=== PATIENT | male | born 1955 | race African-American/Black ===

== ENCOUNTER 2016-12-05 10:17 | Emergency (ER) | payer OTHER, BC ==
[~2016-12-05] VITALS: Ht 172.7 cm; Wt 97.5 kg
--- NOTE | ~2016-12-05 | EKG ---
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 : 1955 Requested By: Atilio Lewis Order Number: [id number] MD: Nate Ashby Measurements Intervals [place] Rate: 60 P: 30 VT: 194 QRS: 32 QRSD: 90 T: 109 QT: 486 QTc: 486 Interpretive Statements Sinus rhythm Probable LVH with secondary repol abnrm Inferior infarct, old Anterior Q waves, possibly due to LVH Compared to ECG 04/08/2016 14:32:54 Myocardial infarct finding now present Q waves now present Short VT interval no longer present Electronically Signed On 12-05-2016 14:13:00 CDT by Nate Ashby [email or web address] <ELECTRONICALLY SIGNED> By: Nate Ashby MD 12/05/16 1413 1042 1042 Nate Ashby MD /EPI
[~2016-12-05 10:17] MED LIST: AMLODIPINE BESYL5 MG PO; BYSTOLIC 5 MG5 M1 PO; BYSTOLIC10 MG PO; COUMADIN 5 MG TA5 M1 PO; DEMADEX20 MG PO; EFFIENT10 MG PO; ENOXAPARIN100 MG/11 SUBQ; FLOMAX0.4 MG PO; FOLIC ACID1 MG PO; LANTUS100 UNIT/M SQ; LASIX 80 MG TAB80 MG PO; LIPITOR40 MG PO; METOLAZONE 5 MG5 MG PO; NORCO 5-325 TA1 EACH PO; NORVASC5 MG PO; NOVOLOG100 UNIT/1 SQ; PLAVIX 75 MG TA75 M1 PO; PROSCAR 5MG TABL5 MG PO; RENVELA800 MG PO; TORSEMIDE20 MG PO; URECHOLINE 10 M10 M1 PO
[2016-12-05] MEDS ORDERED: BASAGLAR K100 UNIT/1 SQ (10:35)
[2016-12-05] MEDS ORDERED: FLEXERIL PO (12:26)
[2016-12-05] MEDS ORDERED: HYDROCODONE-AP1 EAC6 PO (12:26)
[2016-12-05] MEDS ORDERED: SENOKOT-S1 TA1 PO (12:45)
== END 2016-12-05 12:45 | disposition home or self-care (01) ==
LOC: ER 10:17
DX: S46.811A Strain of other muscles, fascia and tendons at shoulder and upper arm level, right arm, initial encounter (principal); I25.10 Atherosclerotic heart disease of native coronary artery without angina pectoris; E21.3 Hyperparathyroidism, unspecified; G47.33 Obstructive sleep apnea (adult) (pediatric); E78.5 Hyperlipidemia, unspecified; D57.3 Sickle-cell trait; I13.0 Hypertensive heart and chronic kidney disease with heart failure and stage 1 through stage 4 chronic kidney disease, or unspecified chronic kidney disease; E11.22 Type 2 diabetes mellitus with diabetic chronic kidney disease; N18.4 Chronic kidney disease, stage 4 (severe); I50.9 Heart failure, unspecified; E11.40 Type 2 diabetes mellitus with diabetic neuropathy, unspecified; Z79.4 Long term (current) use of insulin; Z95.5 Presence of coronary angioplasty implant and graft; Z99.2 Dependence on renal dialysis; Z88.8 Allergy status to other drugs, medicaments and biological substances; Z87.891 Personal history of nicotine dependence; X58.XXXA Exposure to other specified factors, initial encounter; Y93.89 Activity, other specified; Y92.89 Other specified places as the place of occurrence of the external cause; Y99.8 Other external cause status

== ENCOUNTER 2016-12-09 17:47 | Emergency (ER) | payer OTHER, BC ==
[~2016-12-09] VITALS: Ht 175.3 cm; Wt 97.5 kg
[~2016-12-09 17:47] MED LIST changes: +BASAGLAR K100 UNIT/1 SQ; +FLEXERIL PO; +HYDROCODONE-AP1 EAC6 PO; +SENOKOT-S1 TA1 PO
[2016-12-09] MEDS ORDERED: MOBIC15 MG PO (20:02)
== END 2016-12-09 20:31 | disposition home or self-care (01) ==
LOC: ER 17:47
DX: S46.911A Strain of unspecified muscle, fascia and tendon at shoulder and upper arm level, right arm, initial encounter (principal); I13.0 Hypertensive heart and chronic kidney disease with heart failure and stage 1 through stage 4 chronic kidney disease, or unspecified chronic kidney disease; E11.22 Type 2 diabetes mellitus with diabetic chronic kidney disease; N18.4 Chronic kidney disease, stage 4 (severe); I50.9 Heart failure, unspecified; E11.42 Type 2 diabetes mellitus with diabetic polyneuropathy; I25.10 Atherosclerotic heart disease of native coronary artery without angina pectoris; M19.90 Unspecified osteoarthritis, unspecified site; E78.5 Hyperlipidemia, unspecified; Z95.5 Presence of coronary angioplasty implant and graft; Z79.4 Long term (current) use of insulin; Z98.890 Other specified postprocedural states; Z99.2 Dependence on renal dialysis; Z88.8 Allergy status to other drugs, medicaments and biological substances; Z87.891 Personal history of nicotine dependence; V89.2XXA Person injured in unspecified motor-vehicle accident, traffic, initial encounter; Y93.89 Activity, other specified; Y92.89 Other specified places as the place of occurrence of the external cause; Y99.8 Other external cause status

== ENCOUNTER 2017-01-23 10:01 | Emergency (ER) | payer OTHER, BC ==
[~2017-01-23] VITALS: Ht 175.3 cm; Wt 102.1 kg
--- NOTE | ~2017-01-23 | HC ---
[facility] [place] [address] CONSULTATION Name: DARCIEGARCIA Room #: DEP Temo#: [id number] Admission: 01/23/17 Attend Phys: Discharge: 01/23/17 Date of : 53 Report #: [id number] THIS REPORT FOR: //name// CC: Emiliano Mack DATE OF SERVICE: 01/23/2017 ATTENDING PHYSICIAN: Emiliano Torres M.D., F.A.C.C. REASON FOR CONSULTATION: End-stage renal disease. HISTORY OF PRESENT ILLNESS: The patient is well known to our service. This is a 61-year-old gentleman with longstanding diabetes mellitus and diabetic nephropathy who has been on dialysis for the last 9 months. Last year, he had recurrence of angina related to an LAD lesion, which had been on the side of 2 previous LAD cardiac stents. It was decided that he undergo a HODGSON to LAD surgical procedure, which was performed by Dr. Thomas last March. Unfortunate, he was close to end-stage renal disease, had further deterioration of his renal function postoperatively and has more or less been on dialysis ever since. Today, in dialysis, he developed left-sided sharp chest pain, not accompanied by shortness of breath. This worsened, and he came off dialysis and was sent to the Emergency Room. His troponin was 0.21. There were no EKG changes. PAST MEDICAL HISTORY: Longstanding diabetes. He has retinopathy. He has had laser surgery times 2. He has had peripheral neuropathy. He has had hypertension. FAMILY HISTORY: Positive for a brother with diabetes who also had heart bypass surgery. No other renal disease in the family. SOCIAL HISTORY: Former smoker, but he quit. He is disabled. REVIEW OF SYSTEMS: GENERAL: Up to this point, he has been feeling well. He has been active. He has been working to some degree around the house anyway. EYES: Vision is okay. ENT: Hearing okay. Swallowing okay. No mouth ulcers. ENDOCRINE: There is no thyroid disease. RESPIRATORY: There has not been no shortness of breath or pleuritic pain. CARDIAC: He had this sharp chest pain on the left side today and has not been having any angina. GASTROINTESTINAL: No nausea, diarrhea or bloody stools. No vomiting. [facility] [address] [place] [address] CONSULTATION Name: GARCIA SPRAGUE Room #: DEP RO Plascencia#: [id number] Admission: 01/23/17 Attend Phys: Discharge: 01/23/17 Date of : 53 Report #: [id number] GENITOURINARY: He has got a good urinary stream without dysuria or hematuria. NEUROLOGIC: He has had some peripheral neuropathy with numbness and tingling in his feet. There has been no seizure or stroke. No syncopal episodes. PSYCHIATRIC: No depression or anxiety. SKIN: No skin rashes, lesions or ulcers. PHYSICAL EXAMINATION: VITAL SIGNS: Healthy, well-appearing gentleman. SKIN: Unremarkable. SKELETAL: He is a little bit overweight. HEENT: Extraocular movements are full. Vision is intact. No scleral icterus. Hearing intact. Mucous membranes are moist. Tongue and buccal mucosa benign. NECK: Supple, no carotid bruits, no JVD, no lymphadenopathy. CHEST: Completely clear to auscultation. HEART: Regular rate and rhythm without murmurs, gallops or rubs. ABDOMEN: Soft and nontender. No bruits, masses or organomegaly. EXTREMITIES: He has got a fistula on his left arm. Good thrill and bruit. LABORATORY DATA: Hemoglobin is 11.8. Platelets are 150. White count is 6.6. Sodium 136, potassium 4, chloride 97, bicarbonate 31, BUN 26 and creatinine 3.8. HOME MEDICATIONS: As listed in the chart include amlodipine 5 mg daily, ampicillin 500 mg b.i.d., aspirin 81 mg daily, Urecholine 10 mg b.i.d., calcium acetate, finasteride 5 mg daily, Asacol 400 mg daily, insulin, warfarin, torsemide and Flomax. ASSESSMENT AND PLAN: 1. Chest pain. He is having chest pain. It is unusual and somewhat atypical. We will leave the decision to admission up to Dr. Torres, the kier operator. 2. End-stage renal disease. He had dialyzed today, and he appears well dialyzed. 3. Diabetes mellitus with triopathy. <ELECTRONICALLY SIGNED> By: Emiliano Jenkins MD 01/25/17 1122 1152 181 Emiliano Jenkins MD /nt
--- NOTE | ~2017-01-23 | EKG ---
[facility] [employer] [place] [address] ELECTROCARDIOGRAM REPORT Name: DARCIEGARCIA Room #: [facility]P [facility] [id number] Admission: 01/23/17 Attend Phys: Discharge: 01/23/17 Date of : 53 Report #: [id number] THIS REPORT FOR: //name// [facility] ED Test Date: 2017-01-23 Test Time: 10:10:05 Pat Name: GARCIA SPRAGUE Department: Room: Gender: M [place]eller: [id number] : 1955 Requested By: Renato Stanton Order Number: [id number] MD: Casa Raya Measurements Intervals [place] Rate: 60 P: 20 ID: 187 QRS: 40 QRSD: 94 T: 145 QT: 450 QTc: 450 Interpretive Statements Sinus rhythm Poor R wave progression Nonspecific ST and T wave abnormality Compared to ECG 12/05/2016 10:42:09 No significant change was found Electronically Signed On 01-24-2017 13:03:38 CDT by Casa Raya [email or web address] <ELECTRONICALLY SIGNED> By: Casa Raya MD, [facility] 01/24/17 1303 1010 1010 Casa Raya MD, [facility] /EPI
[~2017-01-23 10:01] MED LIST changes: +MOBIC15 MG PO
[2017-01-23 10:23] LABS: ABSOLUTE NEUTROPHILS 4.1 thou/uL (1.4-8.2); BASOPHILS 1.4 % (0.0-2.0); EOSINOPHILS 4.7 % (0.0-3.0); HEMATOCRIT 34.5 % (42.0-52.0); HEMOGLOBIN 11.8 gm/dL (14.0-18.0); LYMPHOCYTES 19.5 % (24.0-44.0); MANUAL DIFF NO; MCH 30.1 pg (26.0-34.0); MCHC 34.2 g/dL (28.0-37.0); MONOCYTES 11.5 % (1.0-8.0); PLATELET COUNT 150 thou/uL (150-400); POLYS 62.9 % (36.0-66.0); RBC 3.92 mil/uL (4.50-6.00); RDW 15.5 % (10.5-14.5); WBC 6.6 thou/uL (4.0-11.0)
[2017-01-23 10:32] LABS: CALCIUM 8.8 mg/dL (8.5-10.1); CREATININE 3.8 mg/dL (0.7-1.3)
[2017-01-23 10:40] LABS: ALBUMIN 3.4 g/dL (3.4-5.0); DIRECT BILIRUBIN 0.1 mg/dL (<0.1-0.3); TOTAL BILIRUBIN 0.6 mg/dL (<0.1-1.0); TOTAL PROTEIN 7.2 g/dL (6.4-8.2); TROPONIN-I 0.21 ng/mL (<0.04-0.07)
[2017-01-23 10:50] LABS: APTT 25.8 Seconds (24.5-32.8); PROTIME 10.4 Seconds (9.3-11.4)
[2017-01-23] MEDS ORDERED: ASPIR 8181 MG PER TUBE (11:26)
[2017-01-23] MEDS ORDERED: AMPICILLIN TRI500 MG PO (11:26)
[2017-01-23] MEDS ORDERED: CALCIUM ACETAT667 M2 PO (11:28)
[2017-01-23] MEDS ORDERED: BENADRYL25 MG PO (11:28)
[2017-01-23] MEDS ORDERED: ADVIL200 M1 PO (11:30)
[2017-01-23] MEDS ORDERED: NITROGLYCERIN0.4 MG SUBLING (11:31)
[2017-01-23] MEDS ORDERED: TORSEMIDE100 MG PO (11:32)
== END 2017-01-23 13:24 | disposition home or self-care (01) ==
LOC: ER 10:01
PROVIDERS: Physician Assistant
DX: R07.89 Other chest pain (principal); I13.0 Hypertensive heart and chronic kidney disease with heart failure and stage 1 through stage 4 chronic kidney disease, or unspecified chronic kidney disease; E11.22 Type 2 diabetes mellitus with diabetic chronic kidney disease; N18.4 Chronic kidney disease, stage 4 (severe); I50.9 Heart failure, unspecified; E11.40 Type 2 diabetes mellitus with diabetic neuropathy, unspecified; E21.3 Hyperparathyroidism, unspecified; G47.33 Obstructive sleep apnea (adult) (pediatric); E78.5 Hyperlipidemia, unspecified; D57.3 Sickle-cell trait; Z88.8 Allergy status to other drugs, medicaments and biological substances; Z99.2 Dependence on renal dialysis; Z79.4 Long term (current) use of insulin; Z95.5 Presence of coronary angioplasty implant and graft

== ENCOUNTER 2018-05-16 06:51 | Emergency (ER) | payer OTHER, BC ==
[~2018-05-16] VITALS: Ht 175.3 cm; Wt 104.3 kg
--- NOTE | ~2018-05-16 | EKG ---
[facility] [place] [address] ELECTROCARDIOGRAM REPORT Name: DARCIEGARCIA Room #: [facility] [id number] Admission: 05/16/18 Attend Phys: Discharge: Date of : 53 Report #: [id number] THIS REPORT FOR: //name// 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 05/16/18 0759 0702 07 Casa Raya MD, [facility] /EPI
[~2018-05-16 06:51] MED LIST changes: +ADVIL200 M1 PO; +AMPICILLIN TRI500 MG PO; +ASPIR 8181 MG PER TUBE; +BENADRYL25 MG PO; +CALCIUM ACETAT667 M2 PO; +NITROGLYCERIN0.4 MG SUBLING; +TORSEMIDE100 MG PO
[2018-05-16 07:18] LABS: HEMATOCRIT 35.7 % (42.0-52.0); HEMOGLOBIN 11.8 gm/dL (14.0-18.0); MCH 28.7 pg (26.0-34.0); MCHC 33.1 g/dL (28.0-37.0); MCV 86.9 fL (80.0-100.0); RBC 4.11 mil/uL (4.50-6.00); RDW 14.4 % (10.5-14.5); WBC 9.7 thou/uL (4.0-11.0)
[2018-05-16 07:32] LABS: ANION GAP 10 mmol/L (7-16); BUN 41 mg/dL (7-18); CALCIUM 9.1 mg/dL (8.5-10.1); CHLORIDE 97 mmol/L (98-107); CO2 29 mmol/L (21-32); CREATININE 7.6 mg/dL (0.7-1.3); GLUCOSE 220 mg/dL (74-106); POTASSIUM 4.2 mmol/L (3.5-5.1); SODIUM 136 mmol/L (136-145)
[2018-05-16 07:40] LABS: TROPONIN-I <0.06 ng/mL (<0.06)
[2018-05-16 08:44] LABS: ABSOLUTE NEUTROPHILS 8.1 thou/uL (1.4-8.2); ANISOCYTOSIS SLIGHT; ATYPICAL LYMPHS 1 %; LARGE PLATELETS FEW; PLATELET COUNT 124 thou/uL (150-400); POIKILOCYTOSIS SLIGHT
[2018-05-16] MEDS ORDERED: PROMETH-CODEIN 65 ML PO (09:05)
[2018-05-16] MEDS ORDERED: MUCINEX600 MG PO (09:05)
[2018-05-16 09:12] VITALS: BP 193/80
== END 2018-05-16 09:13 | disposition home or self-care (01) ==
LOC: ER 06:51
PROVIDERS: Emergency Medicine
DX: J06.9 Acute upper respiratory infection, unspecified (principal); I25.10 Atherosclerotic heart disease of native coronary artery without angina pectoris; G47.33 Obstructive sleep apnea (adult) (pediatric); E78.5 Hyperlipidemia, unspecified; I13.0 Hypertensive heart and chronic kidney disease with heart failure and stage 1 through stage 4 chronic kidney disease, or unspecified chronic kidney disease; E11.22 Type 2 diabetes mellitus with diabetic chronic kidney disease; I50.9 Heart failure, unspecified; N18.4 Chronic kidney disease, stage 4 (severe); Z99.2 Dependence on renal dialysis; Z79.4 Long term (current) use of insulin; Z88.8 Allergy status to other drugs, medicaments and biological substances

== ENCOUNTER → 2019-10-02 | Outpatient (CLI) | payer OTHER, BC ==
[~2019-10-02] MED LIST changes: +MUCINEX600 MG PO; +PROMETH-CODEIN 65 ML PO
== END ==
LOC: SJCVCIMAG 08:56
DX: R94.31 Abnormal electrocardiogram [ECG] [EKG] (principal); I08.3 Combined rheumatic disorders of mitral, aortic and tricuspid valves; I48.91 Unspecified atrial fibrillation; I65.23 Occlusion and stenosis of bilateral carotid arteries; M79.604 Pain in right leg; M79.605 Pain in left leg; E11.22 Type 2 diabetes mellitus with diabetic chronic kidney disease; I13.2 Hypertensive heart and chronic kidney disease with heart failure and with stage 5 chronic kidney disease, or end stage renal disease; I50.32 Chronic diastolic (congestive) heart failure; N18.6 End stage renal disease; M79.89 Other specified soft tissue disorders; R06.09 Other forms of dyspnea; Z95.1 Presence of aortocoronary bypass graft; Z99.2 Dependence on renal dialysis